=== PATIENT | female | born 1975 | race African-American/Black ===

== ENCOUNTER 2016-09-25 11:58 | Emergency (ER) | payer MEDICAID ==
[~2016-09-25] VITALS: Ht 172.7 cm; Wt 101.5 kg
[~2016-09-25 11:58] MED LIST: LISI1TAB5 PO; METO25TA4 PO; METR500T PO
[2016-09-25] MEDS ORDERED: ALBUTEROL/IPRATROPIUM 2.5MG/0.5MG, 3 ML NPPB ONE (13:30)
[2016-09-25] MEDS ORDERED: ALBUTEROL/IPRATROPIUM 2.5MG/0.5MG, 3 ML ONE (13:33)
[2016-09-25 13:51] LABS: ASPARTATE AMINO TRANSFERASE 49 U/L (15-37); BLOOD UREA NITROGEN 9 mg/dL (7-18)
[2016-09-25 13:57] LABS: IS PT STATUS REG ER OR PRE ER? YES
[2016-09-25] MEDS ORDERED: SODIUM CHLORIDE 0.9%, 500ML IVBOLUS ONE (14:30)
[2016-09-25] MEDS ORDERED: OMNIPAQUE 350 MG/ML, 100ML BOTTLE ONE (14:57)
[2016-09-25 16:03] VITALS: BP 122/79
== END 2016-09-25 16:07 | disposition home or self-care (01) ==
LOC: ED 16:05
DX: R06.00 Dyspnea, unspecified (principal); R19.7 Diarrhea, unspecified; F10.20 Alcohol dependence, uncomplicated; F17.200 Nicotine dependence, unspecified, uncomplicated; J45.909 Unspecified asthma, uncomplicated; I50.9 Heart failure, unspecified; I11.0 Hypertensive heart disease with heart failure
CPT/HCPCS: 36415; 71020; 71275; 80053; 83735; 84484; 85025; 85379; 85610; 85730; 93005; 96360; J7620; Q9967; J7040

== ENCOUNTER 2016-12-30 10:04 | Emergency (ER) | payer MEDICAID ==
[~2016-12-30] VITALS: Ht 172.7 cm; Wt 106.0 kg
[2016-12-30 11:48] LABS: HEMATOCRIT 44.9 % (34.6-47.8); HEMOGLOBIN 15.1 g/dL (11.7-16.4); WHITE BLOOD COUNT 7.8 x10^3/uL (3.4-10)
[2016-12-30 12:00] LABS: BLOOD UREA NITROGEN 8 mg/dL (7-18)
[2016-12-30 12:47] LABS: PATH.CAST-FLAG NOT PRESENT; SPERM-FLAG NOT PRESENT; SRC-FLAG NOT PRESENT; XTAL-FLAG NOT PRESENT; YLC-FLAG NOT PRESENT
[2016-12-30 14:02] VITALS: BP 151/93
== END 2016-12-30 14:04 | disposition home or self-care (01) ==
LOC: ED 13:08
DX: I10 Essential (primary) hypertension (principal); F17.210 Nicotine dependence, cigarettes, uncomplicated
CPT/HCPCS: 36415; 80048; 81001; 85025; 99284